=== PATIENT | male | born 1940 | race Caucasian/White ===

== ENCOUNTER 2019-03-05 18:20 | Inpatient (IN) | payer OTHER, SELFPAY ==
[~2019-03-05] VITALS: Ht 177.8 cm; Wt 117.6 kg
[~2019-03-05 18:20] MED LIST: ACCUNEB1.25 MG/3; ACETAMINOPHEN325 M1 PO; ALBUTEROL INH; ALBUTEROL2.5 MG/31 INH; ALEVE220 M1 PO; ALLEGRA180 MG PO; AMBIEN 10 MG TA10 MG PO; AMITRIPTYLINE H25 M2 PO; AMOXICILLIN 50500 M1 PO; ANUSOL1 EACH RC; ASPIR 8181 MG PO; ASPIRIN EC81 M1; ASPIRIN EC81 M1 PO; ATORVASTATIN CA40 MG PO; AUGMENTIN 875875 MG PO; AZITHROMYCIN 2250 MG PO; BAYER CHEWABLE81 MG PO; BENADRYL ALLERG25 MG PO; BIAXIN 500 MG500 M2 PO; BRILINTA90 MG PO; BROVANA15 MCG/2 M INH; CEFTIN 250 MG250 MG PO; CHLORASEPTIC177 ML PO; CIPROFLOXACIN500 M1 PO; CIPROFLOXACIN500 M3 PO; CLOBETASOL EMOL15 GM TOP; COLACE100 MG PO; COMBIVENT RESPIM4 GM PO; DIAZEPAM 5 MG5 M1 PO; DICLOFENAC SODI75 M1 PO; DOXYCYCLINE 10100 MG PO; DUONEB 2.5-0.5 M3 ML INH; EFFEXOR 5050 MG/1 T1 PO; EFFIENT10 MG PO; FERROUS GLUCON324 M2 PO; FEXOFENADINE H180 MG PO; FLAGYL500 MG PO; FLOMAX0.4 MG PO; FOLIC ACID1 MG PO; FUROSEMIDE 20 M20 M1 PO; GERI-HYDROLAC140 GM TOP; HYDROCHLOROTHIA25 M2 PO; HYDROCODON-ACE1 EAC2; HYDROCODONE-AP1 EAC6 PO; IMODIUM ADVANC1 EAC1 PO; IPRATROPIU0.2 MG/1 M INH; IRON325 PO; K-DUR10 ME1 PO; KLOR-CON 10 ER10 MEQ; KLOR-CON 1010 MEQ PO; LASIX 20 MG TAB20 MG PO; LEVAQUIN 500 M500 M2 PO; LEVAQUIN 750 M750 MG PO; LINZESS290 MCG PO; LISINOPRIL20 MG; LISINOPRIL20 MG PO; MEDROLDOSEPACK PO; MELATONIN 5 MG1 EAC1 PO; MELATONIN3 MG PO; MELATONIN5 M1 PO; METHADONE HCL5 MG PO; MIRALAX255 GM PO; MOM PO; MORPHINE SULFAT15 M3; MS CONTIN15 MG PO; MUCINEX TA600 MG/TA2 PO; MUCINEX600 MG PO; MULTIVITAMINS; MULTIVITAMINS PO; NEURONTIN 300300 M1 PO; NEURONTIN600 MG PO; NEXIUM 24HR20 M1 PO; NITROGLYCERIN0.4 MG SUBLING; OMEPRAZOLE40 MG; OMEPRAZOLE40 MG PO; OXYCODONE HCL15 MG PO; OXYCODONE HCL5 M1 PO; OXYGEN; PANTOPRAZOLE SO40 M1 PO; PEPCID40 MG PO; PHENERGAN-CODE120 ML PO; PLAVIX 75 MG TA75 M1 PO; PREDNISONE 10 M10 M1; PREDNISONE 10 M10 M1 PO; PREDNISONE 10 M10 MG PO; PREDNISONE 20 M20 M1 PO; PREDNISONE 5 MG5 M1 PO; PRILOSEC40 MG PO; PRINIVIL20 MG; PRINIVIL20 MG PO; PRINIVIL5 MG PO; PROAIR HFA8.5 GM; PROAIR HFA8.5 GM INH; PROAIR HFA8.5 GM PO; PROBIOTIC1 EAC1 PO; PROMETHEGAN25 MG RC; PROTONIX 20 MG20 M1 PO; PROTONIX40 MG PO; PROVENTIL; PULMICORT0.5 MG/21 INH; QUETIAPINE FUM100 MG PO; ROVIN-CF OF TA1 EACH PO; SENNA-DOCUSATE1 EACH PO; SENNA8.6 MG PO; SENTRY SENIOR1 EAC1 PO; SEROQUEL 25 MG25 M1 PO; SIMVASTATIN40 MG; SIMVASTATIN40 MG PO; SINGULAIR 10 MG10 M1 PO; SPIRIVA; SPIRIVA INH; TAMSULOSIN HCL0.4 M1 PO; TESSALON PERLE100 MG PO; TESSALON200 MG PO; TRAMADOL 50 MG50 MG PO; TUSSIONEX PENN473 ML PO; TYLENOL EXTRA500 MG PO; TYLENOL PM EX-1 EACH PO; TYLENOL325 MG PO; VALIUM2 MG PO; VALIUM5 MG PO; VENLAFAXINE H37.5 M2 PO; VICODIN 5-5001 EACH; VITAMIN B-12250 MC2 PO; VITAMIN B-12500 MCG PO; WELLBUTRIN SR150 MG PO; ZEGERID 40 MG1 EACH PO; ZEGERID OTC 201 EACH PO; ZESTORETIC 20-1 EAC3 PO; ZOCOR40 MG PO; ZOFRAN 4 MG ORAL4 M1 DIS; ZYVOX600 MG PO; [UNRECOGNIZED DRUG - OTHER] PO
[2019-03-05 20:34] VITALS: BP 158/53
--- NOTE | 2019-03-05 23:48 | NUR ---
PT ARRIVED FROM [facility] ER AT AROUND 1940HRS. PT IS ALERT AND ORIENTED. PLEASANT AND COOPERATIVE.PT IS ON 02/4L/NC PER BASELINE. R JAW AND THROAT IS SORE AND TENDER. PT SAYS HE DOES NOT USUALLY TAKE ANY PAIN MEDS. DR MARC HERE TO SEE PT.NEW ORDERS INITIATED.PT WAS GIVEN SOME ORANGE JUICE AND HE WAS SWALLOWING OKAY.VSS.HE WILL BE NPO AFTER MIDNIGHT. ISOLATION FOR HX OF MRSA IN THE NARES. CALL LIGHT WITHIN REACH. WILL CONTINUE WITH POC TILL EOS.
[2019-03-06 06:08] VITALS: BP 123/63
[2019-03-06 08:26] VITALS: BP 138/64
[2019-03-06 12:17] LABS: HEMATOCRIT 37.8 % (42.0-52.0); HEMOGLOBIN 12.5 gm/dL (14.0-18.0); MCH 27.9 pg (26.0-34.0); MCV 84.6 fL (80.0-100.0); RBC 4.46 mil/uL (4.50-6.00); RDW 13.6 % (10.5-14.5); WBC 9.2 thou/uL (4.0-11.0)
[2019-03-06 12:30] LABS: CALCIUM 8.9 mg/dL (8.5-10.1); CREATININE 1.4 mg/dL (0.7-1.3); MAGNESIUM 1.5 mg/dL (1.8-2.4); POTASSIUM 3.9 mmol/L (3.5-5.1)
--- NOTE | 2019-03-06 13:19 | NUR ---
ASSESSMENT-PT LIVES AT HOME WITH HIS 74 YEAR OLD S.O IN A MOBILE HOME. HE WALKS ON HIS OWN, USES A CANE, A WALKER OR A SCOOTER TO GET AROUND. SHE DRIVES ND DOES THE COOKING, CLEANING AND LAUNDRY. PT HAS HAD HH IN THE PAST [facility] HE THINKS. PT HAS 02, NEB AND TRILOGY FROM [facility]. PT USES HIS SCOOTER OUTSIDE OF THE MOBILE HOME. PT SAYS HE HAS A FINANCIAL RONALD AT [facility]. WILL NOTIFY SANTA OF THIS. FOLLOWING TO assist with dc planning.
[2019-03-06 17:28] VITALS: BP 118/50
--- NOTE | 2019-03-06 18:30 | NUR ---
PT ASSESSED AT START OF SHIFT. DR. ARMAS IN EARLY TO SEE PT. PLAN IS ON IV ANTIBIOTICS AND WILL GO HOME ON PO WHEN READY AND TO RETURN TO DR. ARMAS TO HAVE GLAND REMOVED. NO C/O PAIN. UP AD SOHA IN ROOM USING IV POLE AND GAIT STEADY. EATING AND DRINKING WELL. BM THIS SHIFT.
[2019-03-06 21:00] VITALS: BP 104/59
[2019-03-07 04:27] LABS: HEMATOCRIT 33.9 % (42.0-52.0); HEMOGLOBIN 11.1 gm/dL (14.0-18.0); MCH 27.8 pg (26.0-34.0); MCHC 32.7 g/dL (28.0-37.0); RBC 3.99 mil/uL (4.50-6.00); RDW 13.5 % (10.5-14.5); WBC 13.7 thou/uL (4.0-11.0)
--- NOTE | 2019-03-07 04:29 | NUR ---
PATIENT ALERT AND ORIENTED X4. UP ADLIB IN ROOM. DENIES PAIN. IVF INFUSING W/O COMPLICATION. 4LNC WITH SOME SOA UPON EXERTION. THIS NURSE SPOKE TO THE DAUGHTER FOR AN UPDATE ON HIS CARE. RESTING QUIETLY. WILL MONITOR.
[2019-03-07 04:31] LABS: CALCIUM 8.2 mg/dL (8.5-10.1); CREATININE 1.2 mg/dL (0.7-1.3); MAGNESIUM 1.6 mg/dL (1.8-2.4); POTASSIUM 4.5 mmol/L (3.5-5.1)
[2019-03-07 04:45] VITALS: BP 127/43
[2019-03-07 07:59] VITALS: BP 137/59
--- NOTE | 2019-03-07 14:24 | NUR ---
ASSUMED CARE OF PT AT 0700. ASSESSMENT CHARTED. PT SLEEPING MOST OF THE DAY. DROWSY, ORIENTED TO PERSON, PLACE, AND TIME. CONFUSED AT TIMES. [address], BASELINE HOME OXYGEN USE. C/O RIGHT JAW DISCOMFORT, REFUSING TO TAKE PAIN MEDS AT THIS TIME. VSS. WILL FOLLOW POC AND CONTINUE TO MONITOR.
[2019-03-07 20:15] VITALS: BP 113/51
--- NOTE | 2019-03-08 04:37 | NUR ---
PATIENT ALERT AND ORIENTED X4. UP ADLIB IN ROOM. DENIES PAIN. IVF INFUSING W/O COMPLICATION. COOPERATIVE WITH CARE. GIVEN PRN MEDICATION OF COUGH AUGUTSO AND MELATONIN. PATIENT IS RESTING QUIETLY AT TIME OF NOTE. WILL MONITOR.
[2019-03-08 04:45] VITALS: BP 132/54
[2019-03-08 09:19] VITALS: BP 118/62
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
[2019-03-08] MEDS ORDERED: AUGMENTIN 875-1 EACH PO (10:11)
[2019-03-08] MEDS ORDERED: ZYVOX600 MG PO (10:12)
[2019-03-08 10:26] VITALS: BP 118/62
--- NOTE | 2019-03-08 14:06 | NUR ---
ASSUMED CARE OF PT AT 0700. ASSESSMENT CHARTED. PT A&O,X4. C/O RIGHT SIDED JAW DISCOMFORT, REFUSES PAIN MEDS. NEW DISCHARGE ORDERS. DISCHARGE INFORMATION AND NEW SCRIPTS GIVEN TO PT AT BEDSIDE. MEDICAL TRANSPORT CALLED TO ACCOMODATE 4 L NC. FAMILY AWARE OF PT DISCHARGE. TRANSPORT ARRANGED FOR 13:30-14:00. MIDLINE IV REMOVED, NO ACTIVE BLEEDING. DR. NEWBY ORDERED ONE TIME PO DOSES OF HOME ABX BEFORE PT LEAVES, DOSES GIVEN ORDERED TO MONITOR NAUSEA. PT IN STABLE CONDITION. PT DRESSED IN PERSONAL CLOTHING, BELONGINGS SENT WITH PT. TRANSPORT LEFT WITH PT VIA WHEELCHAIR AND O2 AT 14:10. NO QUESTIONS OR CONCERNS.
== END 2019-03-08 14:05 | disposition home or self-care (01) | DRG 155 ==
LOC: 4E 18:20
PROVIDERS: ADMIT Internal Medicine
DX: K11.21 Acute sialoadenitis (principal); J96.10 Chronic respiratory failure, unspecified whether with hypoxia or hypercapnia; K11.5 Sialolithiasis; J44.9 Chronic obstructive pulmonary disease, unspecified; I25.10 Atherosclerotic heart disease of native coronary artery without angina pectoris; F41.9 Anxiety disorder, unspecified; F32.9 Major depressive disorder, single episode, unspecified; D64.9 Anemia, unspecified; N40.0 Benign prostatic hyperplasia without lower urinary tract symptoms; G47.00 Insomnia, unspecified; K21.9 Gastro-esophageal reflux disease without esophagitis; J32.9 Chronic sinusitis, unspecified; M19.90 Unspecified osteoarthritis, unspecified site; Z86.14 Personal history of Methicillin resistant Staphylococcus aureus infection; Z90.49 Acquired absence of other specified parts of digestive tract; Z99.81 Dependence on supplemental oxygen; Z95.5 Presence of coronary angioplasty implant and graft; Z22.322 Carrier or suspected carrier of Methicillin resistant Staphylococcus aureus; Z82.49 Family history of ischemic heart disease and other diseases of the circulatory system; Z83.6 Family history of other diseases of the respiratory system; Z87.891 Personal history of nicotine dependence; Z87.11 Personal history of peptic ulcer disease; I25.2 Old myocardial infarction; Z79.82 Long term (current) use of aspirin; Z79.899 Other long term (current) drug therapy
CPT/HCPCS: 10783